=== PATIENT | female | born 1965 | race Caucasian/White ===

== ENCOUNTER → 2021-01-10 15:55 | Outpatient (CLI) | payer MEDICAID, SELFPAY ==
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
--- NOTE | 2021-01-10 16:29 | XR_ITS ---
PROCEDURE: XR FOREARM RT 2V CLINICAL INDICATION: ulna fracture COMPARISON: No exams were available for comparison FINDINGS: Displaced healed fracture of the distal 1/3 of the right ulna is noted with adjacent callus formation. No other acute fractures or dislocations. Bone density is normal. The visualized radiocarpal and elbow joints are unremarkable. No significant soft IMPRESSION: Displaced healed fracture of the distal 1/3rd of the right ulna. Dictated by: Slime Garcia 01/10/2021 16:42 Slime Garcia in OV 01/10/2021 16:42
== END ==
PROVIDERS: PCP Family Medicine; Visit Provider Family Medicine
DX: M79.604 Pain in right leg (principal); M79.605 Pain in left leg; R60.9 Edema, unspecified; S52.209A Unspecified fracture of shaft of unspecified ulna, initial encounter for closed fracture
CPT/HCPCS: 73090; 93970

== ENCOUNTER → 2021-02-18 18:06 | Outpatient (CLI) | payer MEDICAID, SELFPAY ==
[2021-02-18 18:24] LABS: Basophils % 0.2 % (0.1-2.0); Eosinophils # 0.2 K/mm3 (0.0-0.4); Eosinophils % 1.7 % (0.1-12.0); Hematocrit 38.3 % (37.0-47.0); Lymphocytes # 2.7 K/mm3 (0.7-4.5); Lymphocytes % 21.5 % (10-50); Mean Corpuscular HGB Conc 31.2 g/dL (31.8-35.4); Mean Corpuscular Hemoglobin 24.3 pg (27.0-31.2); Mean Corpuscular Volume 77.9 fl (81-99); Mean Platelet Volume 7.4 fl (7.4-10.4); Monocytes # 0.5 K/mm3 (0.1-1.0); Monocytes % 3.9 % (1.7-9.3); Neutrophils # 8.9 K/mm3 (1.8-7.8); Neutrophils % 72.7 % (37.0-80.0); Platelet Count 576 K/mm3 (142-424); Red Blood Count 4.92 M/mm3 (4.20-5.40); White Blood Count 12.3 K/mm3 (4.8-10.8)
[2021-02-18 18:56] LABS: Alanine Aminotransferase 10 U/L (12-78); Albumin Level 4.3 g/dl (3.5-5.0); Albumin/Globulin Ratio 1.3 (1.1-1.8); Alkaline Phosphatase 124 U/L (38-126); Anion Gap 16.6 mEq/L (5-15); Aspartate Amino Transferase 15 U/L (14-36); Bilirubin,Total 0.4 mg/dl (0.2-1.3); Blood Urea Nitrogen 12 mg/dl (7-17); Calcium 9.9 mg/dl (8.4-10.2); Carbon Dioxide 26 mmol/L (22.0-30.0); Chloride 100 mmol/L (98-107); Chol/HDL Ratio 3.7 (1-3.5); Cholesterol 187 mg/dl (140-200); Estimated Glomerular Filt Rate 129 ml/min (>60); GFR (African American) 156 ML/MIN (>60); Globulin 3.3 g/dL (1.3-3.2); Glucose 315 mg/dl (74-100); HDL Cholesterol 51 mg/dl (40-60); Potassium 4.6 mmoL/L (3.5-5.1); Sodium 138 mmol/L (136-145); Total Protein,Serum 7.6 g/dl (6.3-8.2); Triglycerides 173 mg/dl (30-150); VLDL Cholesterol 35 mg/dL (0-40)
[2021-02-18 19:10] LABS: Hemoglobin A1C 9.2 % (4.0-6.0)
[2021-02-18 19:14] LABS: T4 (Thyroxine) 9.7 ug/dl (5.53-11.0)
[2021-02-18 19:27] LABS: Thyroid Stimulating Hormone 0.77 uIU/mL (0.465-4.68)
== END ==
PROVIDERS: Visit Provider Family Medicine
DX: E11.9 Type 2 diabetes mellitus without complications (principal); Z79.4 Long term (current) use of insulin; Z79.899 Other long term (current) drug therapy
CPT/HCPCS: 80053; 80061; 83036; 84436; 84443; 85025

== ENCOUNTER → 2022-05-02 09:40 | Outpatient (CLI) | payer MEDICAID, SELFPAY ==
[2022-05-02 10:47] LABS: Basophils # 0.1 K/mm3 (0-0.2); Basophils % 0.5 % (0.1-2.0); Eosinophils # 0.1 K/mm3 (0.0-0.4); Eosinophils % 1.4 % (0.1-12.0); Hematocrit 33.1 % (37.0-47.0); Hemoglobin 9.5 g/dL (12.2-16.2); Lymphocytes # 2.7 K/mm3 (0.7-4.5); Lymphocytes % 26.9 % (10-50); Mean Corpuscular HGB Conc 28.6 g/dL (31.8-35.4); Mean Corpuscular Hemoglobin 23.3 pg (27.0-31.2); Mean Corpuscular Volume 81.3 fl (81-99); Mean Platelet Volume 6.5 fl (7.4-10.4); Monocytes # 0.5 K/mm3 (0.1-1.0); Monocytes % 4.5 % (1.7-9.3); Neutrophils # 6.8 K/mm3 (1.8-7.8); Neutrophils % 66.7 % (37.0-80.0); Platelet Count 369 K/mm3 (142-424); Red Blood Count 4.07 M/mm3 (4.20-5.40); Red Cell Distribution Width 17.5 % (11.5-17.5); White Blood Count 10.1 K/mm3 (4.8-10.8)
[2022-05-02 11:11] LABS: Chloride 101 mmol/L (98-107); Potassium 4.2 mmoL/L (3.5-5.1); Sodium 137 mmol/L (136-145)
[2022-05-02 11:14] LABS: Alanine Aminotransferase 9 U/L (12-78); Albumin Level 3.7 g/dl (3.5-5.0); Alkaline Phosphatase 115 U/L (38-126); Anion Gap 11.2 mEq/L (5-15); Aspartate Amino Transferase 19 U/L (14-36); Bilirubin,Total 0.3 mg/dl (0.2-1.3); Blood Urea Nitrogen 15 mg/dl (7-17); Calcium 9.1 mg/dl (8.4-10.2); Carbon Dioxide 29 mmol/L (22.0-30.0); Cholesterol 117 mg/dl (140-200); Erythrocyte Sedimentation Rate 47 mm/hr (0-30); Estimated Glomerular Filt Rate 166 ml/min (>60); GFR (African American) 201 ML/MIN (>60); Globulin 3.7 g/dL (1.3-3.2); Glucose 126 mg/dl (74-100); Iron 16 ug/dL (37-170); Total Protein,Serum 7.4 g/dl (6.3-8.2); Triglycerides 88 mg/dl (30-150); VLDL Cholesterol 18 mg/dL (0-40)
[2022-05-02 11:15] LABS: HDL Cholesterol 42 mg/dl (40-60)
[2022-05-02 11:24] LABS: Total Iron Binding Capacity 197 ug/dL (265-497)
[2022-05-02 12:56] LABS: Hemoglobin A1C 7.3 % (4.0-6.0)
[2022-05-03 17:09] LABS: Prealbumin 13 mg/dL (10-36)
[2022-05-04 01:59] LABS: Direct LDL Cholesterol 52 mg/dL (100-129)
[2022-05-04 02:08] LABS: Chol/HDL Ratio 2.8 (1-3.5)
== END ==
PROVIDERS: Visit Provider Family Medicine
DX: E11.9 Type 2 diabetes mellitus without complications (principal); L89.90 Pressure ulcer of unspecified site, unspecified stage; L89.40 Pressure ulcer of contiguous site of back, buttock and hip, unspecified stage; N23 Unspecified renal colic; R79.82 Elevated C-reactive protein (CRP); Z79.4 Long term (current) use of insulin
CPT/HCPCS: 36415; 80053; 80061; 83036; 83540; 83550; 84134; 85025; 85651; 86140; 87086